=== PATIENT | male | born 2000 ===

== ENCOUNTER 2019-12-13 16:00 | Outpatient (CLI) | payer BC, SELFPAY ==
--- NOTE | 2019-12-13 16:13 | ECG_ITS ---
Measurements Intervals Edson Rate: 66 P: 40 DE: 150 QRS: 46 QRSD: 88 T: 40 QT: 384 QTc: 403 Interpretive Statements SINUS RHYTHM NORMAL ECG Electronically Signed On 12-13-2019 17:15:20 PAPER REWINDER OPERATOR by Cuco Damico D.O.
== END 2019-12-13 16:01 | disposition home or self-care (01) ==
LOC: ANHLAB 16:08
DX: R00.2 Palpitations (principal)
CPT/HCPCS: 93005